=== PATIENT | male | born 1970 | race Caucasian/White ===

== ENCOUNTER 2019-09-20 14:16 | Inpatient (IN) | payer OTHER ==
[2019-09-20 17:34] VITALS: BMI 25.9
--- NOTE | 2019-09-20 20:15 | HP ---
CIWA Score Nausea/Vomitin-Mild Nausea/No Vomiting Muscle Tremors: 4-Moderate,w/Arms Extend Anxiety: 3 Agitation: 3 Paroxysmal Sweats: 3 Orientation: 0-Oriented Tacttile Disturbances: 0-None Auditory Disturbances: 0-None Visual Disturbances: 0-None Headache: 0-None Present CIWA-Ar Total Score: 14 - Admission Criteria OASAS Guidelines: Admission for Medically Managed Detox: Requires at least one of the followin. CIWA greater than 12 2. Seizures within the past 24 hours 3. Delirium tremens within the past 24 hours 4. Hallucinations within the past 24 hours 5. Acute intervention needed for co occurring medical disorder 6. Acute intervention needed for co occurring psychiatric disorder 7. Severe withdrawal that cannot be handled at a lower level of care (continued vomiting, continued diarrhea, abnormal vital signs) requiring intravenous medication and/or fluids 8. Admission ROS [facility] Chief Complaint: Alcohol withdrawal symptoms Allergies/Adverse Reactions: Allergies Allergy/AdvReac Type Severity Reaction Status Date / Time No Known Allergies Allergy Verified 09/20/19 17:25 History of Present Illness: 49 years old male with a long history of alcohol dependence (since age 10) is seeking admission to detox. Patient reports that his last detox was in 2010 at [facility]. He reports that started drinking a lot in 2017 and has had intermittent blackout, last about a year ago. He has medical history of of chronic low back pain, HIV+, and psych. history of depression. He reports suicide attempt at age 16 and denies suicidal ideation at this time. He is on Methadone 80mg maintenance therapy with [facility]. Dose is yet to be confirmed by the nurse. Confidential Drug Utilization Report Search Terms: blake kraft, 1970 Search Date: 09/20/2019 08:10:06 PM The Drug Utilization Report below displays all of the controlled substance prescriptions, if any, that your patient has filled in the last twelve months. The information displayed on this report is compiled from pharmacy submissions to the Department, and accurately reflects the information as submitted by the pharmacies. Patient Name: Blake Kraft Date: 1970 Address: [facility] SRINI [place]SELEY [address] [place] [address] Sex: Male Rx Written Rx Dispensed Drug Quantity Days Supply Prescriber Name 09/08/2019 09/08/2019 oxycodone hcl 30 mg tablet 180 30 Partha Oliverissa 08/11/2019 08/11/2019 oxycodone hcl 30 mg tablet 180 30 Ventrudo , Roque Valdivia 07/14/2019 07/14/2019 oxycodone hcl 30 mg tablet 180 30 Ventrudo , Mitch 06/16/2019 06/18/2019 oxycodone hcl 30 mg tablet 180 30 Ventrudo , Mitch 05/19/2019 05/19/2019 oxycodone hcl 30 mg tablet 150 30 Ventrudo , Mitch 04/21/2019 04/21/2019 oxycodone hcl 30 mg tablet 150 30 Ventrudo , Mitch 03/24/2019 03/24/2019 oxycodone hcl 30 mg tablet 150 30 Ventrudo , Roque Valdivia 03/24/2019 03/24/2019 oxycodone hcl er 40 mg tablet 60 30 Ventrudo, Mitch 02/24/2019 02/24/2019 oxycodone hcl 30 mg tablet 150 30 Oliver , Carol 02/24/2019 02/24/2019 oxycodone hcl er 40 mg tablet 60 30 Oliver, Carol 02/03/2019 02/05/2019 oxymorphone hcl er 20 mg tab 60 30 Jesús Abimbola Bui PA 01/27/2019 01/27/2019 oxycodone hcl 30 mg tablet 150 30 Jaylon Espinosaureen A PA 12/30/2018 12/30/2018 oxycodone hcl 30 mg tablet 150 30 Jaylon Espinosaesau Bui PA 12/02/2018 12/23/2018 oxycontin er 40 mg tablet 60 30 EspinosaAbimbola PA 11/15/2018 12/03/2018 oxycontin er 40 mg tablet 60 30 Jaylon Espinosaesau Bui PA 12/02/2018 12/02/2018 oxycodone hcl 30 mg tablet 150 30 Jesús Abimbola Bui PA 11/04/2018 11/04/2018 oxycodone hcl 30 mg tablet 150 30 Jesús Abimbola Bui PA 11/04/2018 11/04/2018 oxycodone hcl er 40 mg tablet 60 30 Jesús Abimbola DHALIWAL 10/07/2018 10/07/2018 oxycodone hcl 30 mg tablet 150 30 Ventrudo , Roque Valdivia 10/07/2018 10/07/2018 oxycodone hcl er 40 mg tablet 60 30 KaelaoGuerline Exam Limitations: No Limitations - Ebola screening Have you traveled outside of the country in the last 21 days: No (NN) Have you had contact with anyone from an Ebola affected area: No Do you have a fever: No - Review of Systems Constitutional: Chills, Malaise, Night Sweats, Changes in sleep EENT: reports: Blurred Vision, Sinus Pressure Respiratory: reports: No Symptoms reported Cardiac: reports: No Symptoms Reported GI: reports: Poor Appetite, Poor Fluid Intake, Abdominal cramping : reports: No Symptoms Reported Musculoskeletal: reports: Back Pain, Joint Pain, Muscle Pain Integumentary: reports: Dryness, Flushing Neuro: reports: Tremors Endocrine: reports: No Symptoms Reported Hematology: reports: No Symptoms Reported Psychiatric: reports: Mood/Affect Appropiate, Orientated x3, Depressed Other Systems: Reviewed and Negative Patient History - Patient Medical History Hx Anemia: No Hx Asthma: No Hx Chronic Obstructive Pulmonary Disease (COPD): No Hx Cancer: No Hx Cardiac Disorders: No Hx Congestive Heart Failure: No Hx Hypertension: No Hx Hypercholesterolemia: No Hx Pacemaker: No HX Cerebrovascular Accident: No Hx Seizures: No Hx Dementia: No Hx Diabetes: No Hx Gastrointestinal Disorders: No Hx Liver Disease: Yes (Hep. C) Hx Genitourinary Disorders: No Hx Sexually Transmitted Disorders: Yes (HIV+) Hx Renal Disease (ESRD): No Hx Thyroid Disease: No Hx Human Immunodeficiency Virus (HIV): Yes (Diagnosed 1985) Hx Hepatitis C: Yes Hx Depression: Yes Hx Suicide Attempt: Yes (Reports suicide attempt at age 16. denies suicidal ideation at this time) Hx Bipolar Disorder: No Hx Schizophrenia: No - Patient Surgical History Past Surgical History: No - PPD History Previous Implant?: Yes Documented Results: Negative w/o proof Implanted On Prior [facility] Admission?: No PPD to be Administered?: Yes - Reproductive History Patient is a Female of Child Bearing Age (11 -55 yrs old): No (male) - Smoking Cessation Smoking history: Current every day smoker Have you smoked in the past 12 months: Yes Aproximately how many cigarettes per day: 30 Hx Chewing Tobacco Use: No Initiated information on smoking cessation: Yes 'Breaking Loose' booklet given: 09/20/19 - Substance & Tx. History Hx Alcohol Use: Yes Hx Substance Use: Yes Substance Use Type: Alcohol, Cocaine, Heroin, Marijuana, Opiates, Prescribed Hx Substance Use Treatment: Yes ([facility]) - Substances abused Alcohol Substance route: Oral Frequency: Daily Amount used: 4 pints of vodka & 2 beers Age of first use: 11 Date of last use: 09/20/19 Admission Physical Exam [facility] - Vital Signs Vital Signs: Vital Signs - 24 hr 09/20/19 17:31 Temperature 100.1 F H Pulse Rate 79 Respiratory 20 Rate Blood Pressure 120/74 - Physical General Appearance: Yes: Moderate Distress, Tremorous, Irritable HEENTM: Yes: Within Normal Limits Respiratory: Yes: Lungs Clear, Normal Breath Sounds, No Respiratory Distress Neck: Yes: Supple Breast: Yes: Breast Exam Deferred Cardiology: Yes: Regular Rhythm, Regular Rate Abdominal: Yes: Normal Bowel Sounds, Soft Genitourinary: Yes: Within Normal Limits Back: Yes: Normal Inspection Musculoskeletal: Yes: Back pain, Muscle Pain Extremities: Yes: Tremors Neurological: Yes: Alert, Normal Mood/Affect Integumentary: Yes: Dry Lymphatic: Yes: Within Normal Limits - Diagnostic (1) HIV (human immunodeficiency virus infection) Current Visit: Yes Status: Chronic Qualifiers: HIV symptom status: unspecified Qualified Code(s): B20 - Human immunodeficiency virus [HIV] disease (2) Hep C w/o coma, chronic Current Visit: Yes Status: Resolved (3) Low back pain Current Visit: Yes Status: Chronic Qualifiers: Sciatica laterality: sciatica laterality unspecified (4) Depression Current Visit: Yes Status: Chronic Qualifiers: Depression Type: unspecified Qualified Code(s): F32.9 - Major depressive disorder, single episode, unspecified (5) Nicotine dependence Current Visit: Yes Status: Acute Qualifiers: Nicotine product type: cigarettes Substance use status: in withdrawal Qualified Code(s): F17.213 - Nicotine dependence, cigarettes, with withdrawal (6) Cannabis dependence Current Visit: Yes Status: Chronic (7) Cocaine dependence Current Visit: Yes Status: Chronic (8) Opioid dependence on agonist therapy Current Visit: Yes Status: Chronic Cleared for Admission [facility] - Detox or Rehab [facility] Level of Care: Medically Managed Detox Regimen/Protocol: Librium Breathalyzer - Breathalyzer Breathalyzer: 0 Urine Drug Screen - Test Device Lot number: [id number] Expiration date: 04/06/21 - Control Is test valid?: Yes - Results Drug screen NEGATIVE: No Urine drug screen results: THC-Marijuana, WENDIE-Cocaine, FEN-Fentanyl, MOP-Opiates , MTD-Methadone Inpatient Rehab Admission - Rehab Decision to Admit Inpatient rehab admission?: No
[2019-09-20] MEDS ORDERED: METHOCARBAMOL 500 MG TABLET PO PRN (20:36)
[2019-09-20] MEDS ORDERED: P-EPHED 60MG/TRIPROLIDI 2.5MG TABLET PO PRN (20:36)
[2019-09-20] MEDS ORDERED: MAGNESIUM CITRATE 300 ML BOTTLE PO PRN (20:36)
[2019-09-20] MEDS ORDERED: IBUPROFEN 400 MG TABLET (FP) PO PRN (20:36)
[2019-09-20] MEDS ORDERED: chlordiazePOXIDE HCL 25 MG CAPSULE PO PRN (20:36)
[2019-09-20] MEDS ORDERED: MAG HYDROX/AL HYDROX/SIMETH 30 ML UNIT-DOSE CUP PO PRN (20:36)
[2019-09-20] MEDS ORDERED: MENTHOL/PHENOL 1 EACH UD MM PRN (20:36)
[2019-09-20] MEDS ORDERED: MAGNESIUM HYDROX 2400MG/30ML ORAL SUSPENSION 30 ML CUP PO PRN (20:36)
[2019-09-20] MEDS ORDERED: NICOTINE POLACRILEX 2 MG GUM BUC PRN (20:36)
[2019-09-20] MEDS ORDERED: BISMUTH SUBSALICYLATE 524 MG/30 ML UD PO PRN (20:36)
[2019-09-20] MEDS ORDERED: ACETAMINOPHEN 325 MG TABLET (FP) PO PRN ×2 (20:36)
[2019-09-20] MEDS ORDERED: guaiFENesin 200 MG/10 ML 10 ML UNIT-DOSE CUPS PO PRN (20:36)
[2019-09-20] MEDS: chlordiazePOXIDE HCL 25 MG CAPSULE PO SCH (22:46)
[2019-09-20] MEDS: THIAMINE HCL 100 MG TABLET (FP) PO SCH (22:48)
[2019-09-21] MEDS: chlordiazePOXIDE HCL 25 MG CAPSULE PO SCH ×4 (06:37→22:20)
[2019-09-21] MEDS: METHADONE HCL 40 MG DISPERSABLE TABLET PO SCH (09:40)
[2019-09-21] MEDS: NICOTINE 21 MG/24 HOURS TOPICAL PATCH TD SCH (09:42)
[2019-09-21] MEDS: PRENATAL VITAMINS W/ FOLIC ACID TABLET (FP) PO SCH (09:42)
[2019-09-21 09:44] LABS: HEMATOCRIT 42.3 % (35.4-49); HEMOGLOBIN 14.1 GM/dL (11.7-16.9); MCH 29.1 pg (25.7-33.7); MCHC 33.4 g/dl (32.0-35.9); MEAN CELL VOLUME 87.2 fl (80-96); MEAN PLT VOLUME 8.2 fl (7.5-11.1); PLATELET COUNT 228 K/MM3 (134-434); RBC 4.86 M/mm3 (4.00-5.60); RDW 15.7 % (11.9-15.9); WHITE BLOOD COUNT 7.9 K/mm3 (4.0-10.0)
[2019-09-21 09:50] LABS: ALBUMIN 3.3 g/dl (3.4-5.0); BILIRUBIN,TOTAL 0.2 mg/dL (0.2-1); BLOOD UREA NITROGEN 16.6 mg/dL (7-18); CALCIUM 8.3 mg/dL (8.5-10.1); CREATININE 0.8 mg/dL (0.55-1.3); POTASSIUM 3.6 mmol/L (3.5-5.1)
--- NOTE | 2019-09-21 10:07 | EKG ---
Test Reason : Blood Pressure : / mmHG Vent. Rate : 078 BPM Atrial Rate : 078 BPM P-R Int : 124 ms QRS Dur : 112 ms QT Int : 376 ms P-R-T Axes : 034 076 053 degrees QTc Int : 428 ms NORMAL SINUS RHYTHM INCOMPLETE RIGHT BUNDLE BRANCH BLOCK BORDERLINE ECG NO PREVIOUS ECGS AVAILABLE Confirmed by POOL PEREZ MD ([id number]) on 09/21/2019 10:07:06 AM Referred By: Confirmed By:POOL PEREZ MD
--- NOTE | 2019-09-21 11:17 | CONSULT ---
[facility] Psychiatric Consult - Data Date of interview: 09/21/19 Admission source: [facility] Identifying data: Revisit to [facility] (last admitted here in 2010) and redamission to [address] [place] [address] for this 49 y/o [place] male self-referred for detoxification treatment. REBECCA issues : heroin, cocaine, cannabis, alcohol, nicotine. Patient is single, father of two, domiciled, unemployed and supported on [employer] funds. Substance Abuse History: Discussed with the patient. Details in current [facility] report as follows : Smoking history: Current every day smoker. Have you smoked in the past 12 months: Yes. Aproximately how many cigarettes per day: 30. Hx Chewing Tobacco Use: No. Initiated information on smoking cessation: Yes. ' Breaking Loose' booklet given: 09/20/19. - Substance & Tx. History. Hx Alcohol Use: Yes. Hx Substance Use: Yes. Substance Use Type: Alcohol, Cocaine , Heroin, Marijuana, Opiates, Prescribed. Hx Substance Use Treatment: Yes ([facility] ). - Substances abused. Alcohol. Substance route: Oral. Frequency: Daily. Amount used: 4 pints of vodka & 2 beers. Age of first use: 11. Date of last use: 09/20/19 Medical History: Medical profile is remarkable for HIV infection since 1985 (on ART medications), hepatitis C (treated) and chronic lumbar pain. Psychiatric History: No reported history of psychiatric hospitalizations ( psychiatric care was delivered during incarceration). Patient denies having a mental illness and he argues that psychiatrists were treating him, in jail, for insomnia. However, he reports that, at some point, he has been medicated with haloperidol, thorazine and sinequan. Has been off these medications for years. Mr Kraft indicates current methadone maintenance (80 mg/day) at a [facility] program in the [place] ([address] [facility]). Suicide history is remarkable for a distant attempt via self-mutilation (self-inflicted laceration of left forearm in 1985 when informed of his HIV seropositive status). Physical/Sexual Abuse/Trauma History: Patient denies history of abuse. Additional Comment: Urine drug screen results: THC-Marijuana, WENDIE-Cocaine, FEN- Fentanyl, MOP-Opiates, MTD-Methadone. Noted. Mental Status Exam - Mental Status Exam Alert and Oriented to: Time, Place, Person Cognitive Function: Good Patient Appearance: Unkempt, Disheveled Mood: Nervous, Withdrawn, Hopeful, Euthymic Affect: Appropriate, Normal Range Patient Behavior: Fatigued, Appropriate, Cooperative Speech Pattern: Clear, Appropriate Voice Loudness: Normal Thought Process: Intact, Goal Oriented Thought Disorder: Not Present Hallucinations: Denies Suicidal Ideation: Denies Homicidal Ideation: Denies Insight/Judgement: Poor Sleep: Fair Appetite: Good Muscle strength/Tone: Normal Gait/Station: Normal Psychiatric Findings - Problem List ([place] 1, 2,3) (1) Alcohol use disorder Current Visit: Yes Status: Chronic (2) Opioid dependence on agonist therapy Current Visit: Yes Status: Chronic (3) Cannabis dependence Current Visit: Yes Status: Chronic (4) Cocaine dependence Current Visit: Yes Status: Chronic (5) Nicotine dependence Current Visit: Yes Status: Chronic Qualifiers: Nicotine product type: cigarettes Substance use status: in withdrawal Qualified Code(s): F17.213 - Nicotine dependence, cigarettes, with withdrawal (6) Substance induced mood disorder Current Visit: Yes Status: Chronic (7) Insomnia Current Visit: Yes Status: Chronic - Initial Treatment Plan Initial Treatment Plan: Psychiatric interview conducted with medical students in atttendance (with patient's verbal authorization). Psychoeducation. Sleep hygiene. Support provided. AA/NA meetings. Observation.
--- NOTE | 2019-09-21 11:45 | PN ---
[facility] CIWA - CIWA Score Nausea/Vomitin-Mild Nausea/No Vomiting Muscle Tremors: 2 Anxiety: 1-Mildly Anxious Agitation: 1-Slight > Activity Paroxysmal Sweats: 2 Orientation: 0-Oriented Tacttile Disturbances: 2-Mild Itch/Numbness/Burn Auditory Disturbances: 0-None Visual Disturbances: 0-None Headache: 0-None Present CIWA-Ar Total Score: 9 [facility] Progress Note (SOAP) Subjective: interrupted sleep, sweats, low back pains Objective: 09/21/19 11:44 Vital Signs Temperature 99.8 F H 09/21/19 09:16 Pulse Rate 79 09/21/19 09:16 Respiratory Rate 16 09/21/19 09:16 Blood Pressure 116/75 09/21/19 09:16 O2 Sat by Pulse Oximetry (%) Laboratory Tests 09/21/19 09/21/19 09/21/19 08:10 08:10 08:10 WBC 7.9 RBC 4.86 Hgb 14.1 Hct 42.3 MCV 87.2 MCH 29.1 MCHC 33.4 RDW 15.7 Plt Count 228 MPV 8.2 Sodium 137 Potassium 3.6 Chloride 105 Carbon Dioxide 29 Anion Gap 3 L BUN 16.6 Creatinine 0.8 Est GFR (CKD-EPI)AfAm 119.88 Est GFR (CKD-EPI)NonAf 103.43 Random Glucose 106 Calcium 8.3 L Total Bilirubin 0.2 AST 28 ALT 25 Alkaline Phosphatase 119 H Total Protein 7.0 Albumin 3.3 L RPR Titer Nonreactive pt aox3 in nad ambulating Assessment: 09/21/19 11:44 withdrawal sx's otp Plan: cont. detox increase fluids motrin prn
[2019-09-21] MEDS: THIAMINE HCL 100 MG TABLET (FP) PO SCH (22:20)
[2019-09-21] MEDS: MELATONIN 5 MG TABLETS PO PRN (22:20)
[2019-09-22] MEDS: METHADONE HCL 40 MG DISPERSABLE TABLET PO SCH (05:29)
[2019-09-22] MEDS: chlordiazePOXIDE HCL 25 MG CAPSULE PO SCH ×4 (05:29→22:13)
[2019-09-22] MEDS: PRENATAL VITAMINS W/ FOLIC ACID TABLET (FP) PO SCH (10:15)
[2019-09-22] MEDS: NICOTINE 21 MG/24 HOURS TOPICAL PATCH TD SCH (10:16)
--- NOTE | 2019-09-22 13:14 | PN ---
S CIWA - CIWA Score Nausea/Vomitin-Mild Nausea/No Vomiting Muscle Tremors: 3 Anxiety: 2 Agitation: 1-Slight > Activity Paroxysmal Sweats: 1-Minimal Palms Moist Orientation: 0-Oriented Tacttile Disturbances: 0-None Auditory Disturbances: 0-None Visual Disturbances: 1-Very Mild Sensitivity Headache: 1-Very Mild CIWA-Ar Total Score: 10 [facility] Progress Note (SOAP) Subjective: 49 years old male admitted on 09/20/19 for alcohol withdrawal sx management treating with librium detox regimen feeling ok today ambulating on hallway limited social activities with peers encourage positive support networking Objective: 09/22/19 13:17 Vital Signs Temperature 99.0 F 09/22/19 06:16 Pulse Rate 80 09/22/19 06:16 Respiratory Rate 18 09/22/19 06:16 Blood Pressure 113/67 09/22/19 06:16 O2 Sat by Pulse Oximetry (%) Laboratory Last Values WBC 7.9 K/mm3 (4.0-10.0) 09/21/19 08:10 RBC 4.86 M/mm3 (4.00-5.60) 09/21/19 08:10 Hgb 14.1 GM/dL (11.7-16.9) 09/21/19 08:10 Hct 42.3 % (35.4-49) 09/21/19 08:10 MCV 87.2 fl (80-96) 09/21/19 08:10 MCH 29.1 pg (25.7-33.7) 09/21/19 08:10 MCHC 33.4 g/dl (32.0-35.9) 09/21/19 08:10 RDW 15.7 % (11.9-15.9) 09/21/19 08:10 Plt Count 228 K/MM3 (134-434) 09/21/19 08:10 MPV 8.2 fl (7.5-11.1) 09/21/19 08:10 Sodium 137 mmol/L (136-145) 09/21/19 08:10 Potassium 3.6 mmol/L (3.5-5.1) 09/21/19 08:10 Chloride 105 mmol/L (98-107) 09/21/19 08:10 Carbon Dioxide 29 mmol/L (21-32) 09/21/19 08:10 Anion Gap 3 MMOL/L (8-16) L 09/21/19 08:10 BUN 16.6 mg/dL (7-18) 09/21/19 08:10 Creatinine 0.8 mg/dL (0.55-1.3) 09/21/19 08:10 Est GFR (CKD-EPI)AfAm 119.88 09/21/19 08:10 Est GFR (CKD-EPI)NonAf 103.43 09/21/19 08:10 Random Glucose 106 mg/dL (74-106) 09/21/19 08:10 Calcium 8.3 mg/dL (8.5-10.1) L 09/21/19 08:10 Total Bilirubin 0.2 mg/dL (0.2-1) 09/21/19 08:10 AST 28 U/L (15-37) 09/21/19 08:10 ALT 25 U/L (13-61) 09/21/19 08:10 Alkaline Phosphatase 119 U/L (45-117) H 09/21/19 08:10 Total Protein 7.0 g/dl (6.4-8.2) 09/21/19 08:10 Albumin 3.3 g/dl (3.4-5.0) L 09/21/19 08:10 RPR Titer Nonreactive (NONREACTIVE) 09/21/19 08:10 lab noted Assessment: 09/22/19 13:17 alcohol withdrawal Plan: librium regimen
[2019-09-22] MEDS: MELATONIN 5 MG TABLETS PO PRN (22:14)
[2019-09-22] MEDS: THIAMINE HCL 100 MG TABLET (FP) PO SCH (22:14)
[2019-09-23] MEDS ORDERED: chlordiazePOXIDE HCL 10 MG CAPSULE PO PRN
[2019-09-23] MEDS: chlordiazePOXIDE HCL 10 MG CAPSULE PO SCH ×4 (05:25→22:24)
[2019-09-23] MEDS: METHADONE HCL 40 MG DISPERSABLE TABLET PO SCH (05:25)
[2019-09-23] MEDS: NICOTINE 21 MG/24 HOURS TOPICAL PATCH TD SCH (10:08)
[2019-09-23] MEDS: PRENATAL VITAMINS W/ FOLIC ACID TABLET (FP) PO SCH (10:09)
--- NOTE | 2019-09-23 14:05 | PN ---
S CIWA - CIWA Score Nausea/Vomitin Muscle Tremors: 1-None Visible, but [place] Anxiety: 1-Mildly Anxious Agitation: 1-Slight > Activity Paroxysmal Sweats: 2 Orientation: 1-Uncertain about Date Tacttile Disturbances: 1-Very Mild Itch/Numbness Auditory Disturbances: 0-None Visual Disturbances: 0-None Headache: 0-None Present CIWA-Ar Total Score: 10 [facility] Progress Note (SOAP) Subjective: interrupted sleep, sweats, chills, upset stomach Objective: 09/23/19 14:03 Vital Signs Temperature 99.7 F H 09/23/19 09:43 Pulse Rate 67 09/23/19 09:43 Respiratory Rate 18 09/23/19 09:43 Blood Pressure 97/54 L 09/23/19 09:43 O2 Sat by Pulse Oximetry (%) Laboratory Tests 09/21/19 09/21/19 09/21/19 08:10 08:10 08:10 WBC 7.9 RBC 4.86 Hgb 14.1 Hct 42.3 MCV 87.2 MCH 29.1 MCHC 33.4 RDW 15.7 Plt Count 228 MPV 8.2 Sodium 137 Potassium 3.6 Chloride 105 Carbon Dioxide 29 Anion Gap 3 L BUN 16.6 Creatinine 0.8 Est GFR (CKD-EPI)AfAm 119.88 Est GFR (CKD-EPI)NonAf 103.43 Random Glucose 106 Calcium 8.3 L Total Bilirubin 0.2 AST 28 ALT 25 Alkaline Phosphatase 119 H Total Protein 7.0 Albumin 3.3 L RPR Titer Nonreactive pt aox3 in nad ambulating Assessment: 09/23/19 14:04 cont. detox increase fluids Plan: cont detox increase fluids peptobismol prn
[2019-09-23] MEDS: THIAMINE HCL 100 MG TABLET (FP) PO SCH (22:24)
[2019-09-23] MEDS: MELATONIN 5 MG TABLETS PO PRN (22:24)
[2019-09-24] MEDS ORDERED: chlordiazePOXIDE HCL 10 MG CAPSULE PO SCH (05:00)
[2019-09-24] MEDS: METHADONE HCL 40 MG DISPERSABLE TABLET PO SCH (05:58)
[2019-09-24 09:22] VITALS: BP 103/69; PULSE 76; TEMP 99.1
[2019-09-24] MEDS: PRENATAL VITAMINS W/ FOLIC ACID TABLET (FP) PO SCH (11:24)
[2019-09-24] MEDS: NICOTINE 21 MG/24 HOURS TOPICAL PATCH TD SCH (11:24)
--- NOTE | 2019-09-24 16:02 | DS ---
[facility] Detox Discharge Summary Admission Date: 09/20/19 Discharge Date: 09/24/19 (Pt left AMA) - History Present History: Alcohol Dependence Additional Comments: As per H&P: 49 years old male with a long history of alcohol dependence (since age 10) is seeking admission to detox. Patient reports that his last detox was in 2010 at [facility]. He reports that started drinking a lot in 2017 and has had intermittent blackout, last about a year ago. He has medical history of of chronic low back pain, HIV+, and psych. history of depression. He reports suicide attempt at age 16 and denies suicidal ideation at this time. He is on Methadone 80mg maintenance therapy with [facility]. Pt left AMA today. Pt did not complete the detox protocol. Pt states, "i have to go and take care of my sick son". An attempt to let pt stay and complete the detox protocol failed. Pt is encouraged to follow-up with an outpatient CD program and also to follow-up with his PMD. Pt verbalized understanding. Pt is alert and oriented x3 and in no respiratory distress. Pertinent Past History: H/o alcohol use disorder and HIV+ - Physical Exam Results Vital Signs: Vital Signs Temperature 99.1 F 09/24/19 09:22 Pulse Rate 76 09/24/19 09:22 Respiratory Rate 18 09/24/19 09:22 Blood Pressure 103/69 09/24/19 09:22 O2 Sat by Pulse Oximetry (%) Vital Signs 09/24/19 09:22 Temperature 99.1 F Pulse Rate 76 Respiratory 18 Rate Blood Pressure 103/69 Laboratory Last Values WBC 7.9 K/mm3 (4.0-10.0) 09/21/19 08:10 RBC 4.86 M/mm3 (4.00-5.60) 09/21/19 08:10 Hgb 14.1 GM/dL (11.7-16.9) 09/21/19 08:10 Hct 42.3 % (35.4-49) 09/21/19 08:10 MCV 87.2 fl (80-96) 09/21/19 08:10 MCH 29.1 pg (25.7-33.7) 09/21/19 08:10 MCHC 33.4 g/dl (32.0-35.9) 09/21/19 08:10 RDW 15.7 % (11.9-15.9) 09/21/19 08:10 Plt Count 228 K/MM3 (134-434) 09/21/19 08:10 MPV 8.2 fl (7.5-11.1) 09/21/19 08:10 Sodium 137 mmol/L (136-145) 09/21/19 08:10 Potassium 3.6 mmol/L (3.5-5.1) 09/21/19 08:10 Chloride 105 mmol/L (98-107) 09/21/19 08:10 Carbon Dioxide 29 mmol/L (21-32) 09/21/19 08:10 Anion Gap 3 MMOL/L (8-16) L 09/21/19 08:10 BUN 16.6 mg/dL (7-18) 09/21/19 08:10 Creatinine 0.8 mg/dL (0.55-1.3) 09/21/19 08:10 Est GFR (CKD-EPI)AfAm 119.88 09/21/19 08:10 Est GFR (CKD-EPI)NonAf 103.43 09/21/19 08:10 Random Glucose 106 mg/dL (74-106) 09/21/19 08:10 Calcium 8.3 mg/dL (8.5-10.1) L 09/21/19 08:10 Total Bilirubin 0.2 mg/dL (0.2-1) 09/21/19 08:10 AST 28 U/L (15-37) 09/21/19 08:10 ALT 25 U/L (13-61) 09/21/19 08:10 Alkaline Phosphatase 119 U/L (45-117) H 09/21/19 08:10 Total Protein 7.0 g/dl (6.4-8.2) 09/21/19 08:10 Albumin 3.3 g/dl (3.4-5.0) L 09/21/19 08:10 RPR Titer Nonreactive (NONREACTIVE) 09/21/19 08:10 Labs noted. Pertinent Admission Physical Exam Findings: withdrawal symptoms. - Treatment Hospital Course: Detox Protocol Followed, Detoxed Safely, Responded well - Medication Discharge Medications: Ambulatory Orders Elviteg/Cob/Emtri/Tenof Alafen [Genvoya Tablet] 1 each PO DAILY 09/20/19 Gabapentin 800 mg PO PRN PRN 09/20/19 Multivitamins [Tab-A-Vit -] 1 tab PO DAILY 09/20/19 Oxycodone HCl [Roxicodone] 30 mg PO PRN PRN 09/20/19 - Diagnosis (1) Alcohol use disorder Status: Chronic (2) Cannabis dependence Status: Chronic (3) Cocaine dependence Status: Chronic (4) HIV (human immunodeficiency virus infection) Status: Chronic Qualifiers: HIV symptom status: unspecified Qualified Code(s): B20 - Human immunodeficiency virus [HIV] disease (5) Low back pain Status: Chronic Qualifiers: Sciatica laterality: sciatica laterality unspecified (6) Nicotine dependence Status: Chronic Qualifiers: Nicotine product type: cigarettes Substance use status: in withdrawal Qualified Code(s): F17.213 - Nicotine dependence, cigarettes, with withdrawal (7) Opioid dependence on agonist therapy Status: Chronic - AMA Did Patient Leave Against Medical Advice: Yes
[2019-09-25] MEDS ORDERED: chlordiazePOXIDE HCL 10 MG CAPSULE PO ONE (05:00)
== END 2019-09-24 12:21 | disposition home or self-care (01) | DRG 773 ==
LOC: YASAS 14:16 → Y3N 20:33
PROVIDERS: ADMIT Allergy & Immunology; ATTEND Allergy & Immunology
PROC: HZ2ZZZZ Detoxification Services for Substance Abuse Treatment (ICD-10-PCS; principal; 2019-09-17)
DX: F10.230 Alcohol dependence with withdrawal, uncomplicated (principal); F11.20 Opioid dependence, uncomplicated; F14.20 Cocaine dependence, uncomplicated; F12.20 Cannabis dependence, uncomplicated; F17.213 Nicotine dependence, cigarettes, with withdrawal; F19.24 Other psychoactive substance dependence with psychoactive substance-induced mood disorder; F32.9 Major depressive disorder, single episode, unspecified; Z21 Asymptomatic human immunodeficiency virus [HIV] infection status; M54.40 Lumbago with sciatica, unspecified side; G89.29 Other chronic pain; G47.00 Insomnia, unspecified
CPT/HCPCS: 36415; 80053; 85027; 86593; 93005; 93010

== ENCOUNTER 2020-10-15 09:51 | Inpatient (IN) | payer OTHER ==
[2020-10-15 10:58] VITALS: BMI 23.1
[2020-10-15] MEDS ORDERED: NICOTINE POLACRILEX 2 MG GUM BUC PRN (11:15)
[2020-10-15] MEDS ORDERED: METHOCARBAMOL 500 MG TABLET PO PRN (11:15)
[2020-10-15] MEDS ORDERED: MAG HYDROX/AL HYDROX/SIMETH 30 ML UNIT-DOSE CUP PO PRN (11:15)
[2020-10-15] MEDS ORDERED: IBUPROFEN 400 MG TABLET (FP) PO PRN (11:15)
[2020-10-15] MEDS ORDERED: MAGNESIUM HYDROX 2400MG/30ML ORAL SUSPENSION 30 ML CUP PO PRN (11:15)
[2020-10-15] MEDS ORDERED: MAGNESIUM CITRATE 300 ML BOTTLE PO PRN (11:15)
[2020-10-15] MEDS ORDERED: chlordiazePOXIDE HCL 25 MG CAPSULE PO PRN (11:15)
[2020-10-15] MEDS ORDERED: BISMUTH SUBSALICYLATE 524 MG/30 ML UD PO PRN (11:15)
[2020-10-15] MEDS ORDERED: ONDANSETRON *ODT* 4 MG TABLET SL PRN (11:15)
[2020-10-15] MEDS ORDERED: MENTHOL/PHENOL 1 EACH UD MM PRN (11:15)
[2020-10-15] MEDS ORDERED: ACETAMINOPHEN 325 MG TABLET (FP) PO PRN ×2 (11:15)
[2020-10-15] MEDS: PRENATAL VITAMINS W/ FOLIC ACID TABLET (FP) PO SCH (12:47)
[2020-10-15] MEDS: METHADONE HCL 10 MG TABLET PO SCH (12:48)
[2020-10-15] MEDS: NICOTINE 21 MG/24 HOURS TOPICAL PATCH TD SCH (12:48)
[2020-10-15] MEDS ORDERED: ELVITEG/COB/EMTRI/TENOF (GENVOYA) TABLET (NF) PO SCH (13:17)
[2020-10-15] MEDS: hydrOXYzine PAMOATE 25 MG CAPSULE (FP) PO SCH ×3 (14:05→22:24)
[2020-10-15] MEDS: ELVITEG/COB/EMTRI/TENOF (GENVOYA) TABLET (NF) PO SCH (15:34)
[2020-10-15 16:00] LABS: ALBUMIN 3.7 g/dl (3.4-5.0); BLOOD UREA NITROGEN 14.4 mg/dL (7-18); CALCIUM 8.9 mg/dL (8.5-10.1)
[2020-10-15 16:04] LABS: CREATININE 0.7 mg/dL (0.55-1.3)
[2020-10-15 16:05] LABS: BILIRUBIN,TOTAL 0.8 mg/dL (0.2-1)
[2020-10-15 16:21] LABS: HEMATOCRIT 40.8 % (35.4-49); HEMOGLOBIN 13.4 GM/dL (11.7-16.9); MCH 28.2 pg (25.7-33.7); MCHC 32.8 g/dl (32.0-35.9); MEAN CELL VOLUME 85.8 fl (80-96); PLATELET COUNT 227 K/MM3 (134-434); RBC 4.75 M/mm3 (4.00-5.60); RDW 15.5 % (11.9-15.9); WHITE BLOOD COUNT 6.2 K/mm3 (4.0-10.0)
[2020-10-15] MEDS: chlordiazePOXIDE HCL 25 MG CAPSULE PO SCH ×2 (17:39→22:24)
[2020-10-15] MEDS: THIAMINE HCL 100 MG TABLET (FP) PO SCH (22:24)
[2020-10-15] MEDS: MELATONIN 5 MG TABLETS PO SCH (22:24)
[2020-10-16] MEDS: chlordiazePOXIDE HCL 25 MG CAPSULE PO SCH ×4 (06:16→22:26)
[2020-10-16] MEDS ORDERED: METHADONE HCL 40 MG DISPERSABLE TABLET PO SCH (06:16)
[2020-10-16] MEDS: hydrOXYzine PAMOATE 25 MG CAPSULE (FP) PO SCH ×5 (06:17→22:26)
[2020-10-16] MEDS: METHADONE HCL 40 MG DISPERSABLE TABLET PO SCH (06:26)
[2020-10-16] MEDS: METHADONE HCL 10 MG TABLET PO SCH (07:29)
[2020-10-16] MEDS: ELVITEG/COB/EMTRI/TENOF (GENVOYA) TABLET (NF) PO SCH (07:36)
[2020-10-16] MEDS: NICOTINE 21 MG/24 HOURS TOPICAL PATCH TD SCH (10:19)
[2020-10-16] MEDS: PRENATAL VITAMINS W/ FOLIC ACID TABLET (FP) PO SCH (10:20)
[2020-10-16] MEDS ORDERED: FLU VACCINE (FLULAVAL) PF 60 MCG/0.5 ML SYRINGE 2020-2021 IM ONE (12:00)
[2020-10-16] MEDS ORDERED: MASKS NR ONE (16:38)
[2020-10-16] MEDS: MELATONIN 5 MG TABLETS PO SCH (22:25)
[2020-10-16] MEDS: THIAMINE HCL 100 MG TABLET (FP) PO SCH (22:26)
[2020-10-17] MEDS: METHADONE HCL 40 MG DISPERSABLE TABLET PO SCH (06:22)
[2020-10-17] MEDS: chlordiazePOXIDE HCL 25 MG CAPSULE PO SCH ×4 (06:22→23:33)
[2020-10-17] MEDS: hydrOXYzine PAMOATE 25 MG CAPSULE (FP) PO SCH ×5 (06:23→23:01)
[2020-10-17] MEDS: NICOTINE 21 MG/24 HOURS TOPICAL PATCH TD SCH (10:31)
[2020-10-17] MEDS: ELVITEG/COB/EMTRI/TENOF (GENVOYA) TABLET (NF) PO SCH (10:31)
[2020-10-17] MEDS: PRENATAL VITAMINS W/ FOLIC ACID TABLET (FP) PO SCH (10:31)
[2020-10-17] MEDS: LIDOCAINE 5% TOPICAL PATCH TP SCH (11:37)
[2020-10-17] MEDS ORDERED: LIDOCAINE PATCH REMOVAL MC SCH (22:00)
[2020-10-17] MEDS: MELATONIN 5 MG TABLETS PO SCH (23:00)
[2020-10-17] MEDS: LIDOCAINE PATCH REMOVAL MC SCH (23:00)
[2020-10-17] MEDS: THIAMINE HCL 100 MG TABLET (FP) PO SCH (23:01)
[2020-10-18] MEDS ORDERED: chlordiazePOXIDE HCL 10 MG CAPSULE PO PRN
[2020-10-18] MEDS: chlordiazePOXIDE HCL 10 MG CAPSULE PO SCH ×4 (07:00→23:39)
[2020-10-18] MEDS: METHADONE HCL 40 MG DISPERSABLE TABLET PO SCH (07:00)
[2020-10-18] MEDS: hydrOXYzine PAMOATE 25 MG CAPSULE (FP) PO SCH ×5 (07:00→22:41)
[2020-10-18] MEDS: ELVITEG/COB/EMTRI/TENOF (GENVOYA) TABLET (NF) PO SCH (09:57)
[2020-10-18] MEDS: LIDOCAINE 5% TOPICAL PATCH TP SCH (09:59)
[2020-10-18] MEDS: PRENATAL VITAMINS W/ FOLIC ACID TABLET (FP) PO SCH (09:59)
[2020-10-18] MEDS: NICOTINE 21 MG/24 HOURS TOPICAL PATCH TD SCH (09:59)
[2020-10-18] MEDS: THIAMINE HCL 100 MG TABLET (FP) PO SCH (22:40)
[2020-10-18] MEDS: MELATONIN 5 MG TABLETS PO SCH (22:41)
[2020-10-18] MEDS: LIDOCAINE PATCH REMOVAL MC SCH (22:42)
[2020-10-19] MEDS ORDERED: chlordiazePOXIDE HCL 10 MG CAPSULE PO SCH (05:00)
[2020-10-19] MEDS: METHADONE HCL 40 MG DISPERSABLE TABLET PO SCH (05:36)
[2020-10-19] MEDS: hydrOXYzine PAMOATE 25 MG CAPSULE (FP) PO SCH ×2 (05:36→10:00)
[2020-10-19] MEDS: ELVITEG/COB/EMTRI/TENOF (GENVOYA) TABLET (NF) PO SCH (09:09)
[2020-10-19 09:43] VITALS: BP 112/56; PULSE 58; TEMP 98.3
[2020-10-19] MEDS: LIDOCAINE 5% TOPICAL PATCH TP SCH (09:59)
[2020-10-19] MEDS: PRENATAL VITAMINS W/ FOLIC ACID TABLET (FP) PO SCH (10:00)
[2020-10-19] MEDS: NICOTINE 21 MG/24 HOURS TOPICAL PATCH TD SCH (10:00)
[2020-10-20] MEDS ORDERED: chlordiazePOXIDE HCL 10 MG CAPSULE PO ONE (05:00)
== END 2020-10-19 12:50 | disposition home or self-care (01) | DRG 773 ==
LOC: YASAS 09:51 → Y6N 12:11
PROVIDERS: ADMIT Allergy & Immunology; ATTEND Allergy & Immunology
PROC: HZ2ZZZZ Detoxification Services for Substance Abuse Treatment (ICD-10-PCS; principal; 2020-10-15)
DX: F10.230 Alcohol dependence with withdrawal, uncomplicated (principal); F11.20 Opioid dependence, uncomplicated; F14.20 Cocaine dependence, uncomplicated; F13.10 Sedative, hypnotic or anxiolytic abuse, uncomplicated; F12.20 Cannabis dependence, uncomplicated; F17.213 Nicotine dependence, cigarettes, with withdrawal; Z21 Asymptomatic human immunodeficiency virus [HIV] infection status; B18.2 Chronic viral hepatitis C; M54.5 Low back pain; Z86.19 Personal history of other infectious and parasitic diseases; Z87.442 Personal history of urinary calculi; Z91.5 Personal history of self-harm
CPT/HCPCS: 36415; 80053; 85027; 86593; 86780; C9803; G0008; Q2036; U0003

== ENCOUNTER 2021-05-03 11:04 | Inpatient (IN) | payer OTHER ==
[2021-05-03] MEDS ORDERED: BISMUTH SUBSALICYLATE 524 MG/30 ML PO PRN (12:35)
[2021-05-03] MEDS ORDERED: ACETAMINOPHEN 325 MG TABLET (FP) PO PRN (12:35)
[2021-05-03] MEDS ORDERED: MENTHOL/PHENOL 1 EACH UD MM PRN (12:35)
[2021-05-03] MEDS ORDERED: clonazePAM 0.5 MG ODT TABLETS SL PRN (12:35)
[2021-05-03] MEDS ORDERED: MAGNESIUM HYDROX 2400MG/30ML ORAL SUSPENSION 30 ML CUP PO PRN (12:35)
[2021-05-03] MEDS ORDERED: MAGNESIUM CITRATE 300 ML BOTTLE PO PRN (12:35)
[2021-05-03] MEDS ORDERED: ONDANSETRON *ODT* 4 MG TABLET SL PRN (12:35)
[2021-05-03] MEDS ORDERED: MAG HYDROX/AL HYDROX/SIMETH 30 ML UNIT-DOSE CUP PO PRN (12:35)
[2021-05-03] MEDS ORDERED: cloNIDine HCL 0.1 MG TABLET PO PRN (12:35)
[2021-05-03] MEDS ORDERED: NICOTINE POLACRILEX 2 MG GUM BUC PRN (12:35)
[2021-05-03] MEDS ORDERED: methaDONE HCL 10 MG TABLET (FOR DETOX USE ONLY) PO ONE (13:15)
[2021-05-03 14:43] VITALS: BMI 21.2
[2021-05-03] MEDS: hydrOXYzine PAMOATE 25 MG CAPSULE (FP) PO SCH ×3 (14:43→22:23)
[2021-05-03] MEDS: LORazepam 1 MG TABLET PO PRN (14:45)
[2021-05-03 14:49] LABS: HEMATOCRIT 38.6 % (35.4-49); HEMOGLOBIN 12.8 GM/dL (11.7-16.9); MCH 27.7 pg (25.7-33.7); MCHC 33.1 g/dl (32.0-35.9); MEAN CELL VOLUME 83.7 fl (80-96); MEAN PLT VOLUME 7.8 fl (7.5-11.1); PLATELET COUNT 361 10^3/uL (134-434); RBC 4.61 M/mm3 (4.00-5.60); RDW 16.2 % (11.9-15.9); WHITE BLOOD COUNT 9.7 K/mm3 (4.0-10.0)
[2021-05-03 14:54] LABS: ALBUMIN 3.7 g/dl (3.4-5.0); CALCIUM 9.4 mg/dL (8.5-10.1)
[2021-05-03 14:58] LABS: CREATININE 0.9 mg/dL (0.55-1.3)
[2021-05-03 14:59] LABS: BILIRUBIN,TOTAL 0.4 mg/dL (0.2-1); TOT PROT 9.9 g/dl (6.4-8.2)
[2021-05-03] MEDS: NICOTINE 10 MG CARTRIDGE (INHALER) IH PRN (15:41)
[2021-05-03] MEDS: METHOCARBAMOL 500 MG TABLET PO PRN ×2 (15:51→22:23)
[2021-05-03] MEDS: IBUPROFEN 400 MG TABLET (FP) PO PRN (15:51)
[2021-05-03] MEDS: LORazepam 2 MG TABLET PO SCH ×2 (18:28→22:23)
[2021-05-03] MEDS: MELATONIN 5 MG TABLETS PO SCH (22:23)
[2021-05-03] MEDS: THIAMINE HCL 100 MG TABLET (FP) PO SCH (22:23)
[2021-05-04] MEDS: LORazepam 2 MG TABLET PO SCH ×4 (05:45→22:40)
[2021-05-04] MEDS: hydrOXYzine PAMOATE 25 MG CAPSULE (FP) PO SCH ×5 (05:48→22:39)
[2021-05-04] MEDS: NICOTINE 10 MG CARTRIDGE (INHALER) IH PRN ×2 (08:41→11:48)
[2021-05-04] MEDS ORDERED: methaDONE HCL 10 MG TABLET (FOR DETOX USE ONLY) ONE (09:53)
[2021-05-04] MEDS: METHOCARBAMOL 500 MG TABLET PO PRN (10:11)
[2021-05-04] MEDS: PRENATAL VITAMINS W/ FOLIC ACID TABLET (FP) PO SCH (10:12)
[2021-05-04] MEDS: NICOTINE 21 MG/24 HOURS TOPICAL PATCH TD SCH (10:13)
[2021-05-04] MEDS: ACETAMINOPHEN 325 MG TABLET (FP) PO PRN ×2 (10:15→18:48)
[2021-05-04] MEDS: LORazepam 1 MG TABLET PO PRN ×2 (14:45→18:47)
[2021-05-04] MEDS: IBUPROFEN 400 MG TABLET (FP) PO PRN (14:46)
[2021-05-04] MEDS: MELATONIN 5 MG TABLETS PO SCH (22:39)
[2021-05-04] MEDS: THIAMINE HCL 100 MG TABLET (FP) PO SCH (22:39)
[2021-05-05] MEDS: hydrOXYzine PAMOATE 25 MG CAPSULE (FP) PO SCH ×5 (06:32→22:03)
[2021-05-05] MEDS: LORazepam 1 MG TABLET PO SCH ×4 (06:32→22:03)
[2021-05-05] MEDS: IBUPROFEN 400 MG TABLET (FP) PO PRN (09:43)
[2021-05-05] MEDS: METHOCARBAMOL 500 MG TABLET PO PRN (09:43)
[2021-05-05] MEDS: NICOTINE 21 MG/24 HOURS TOPICAL PATCH TD SCH (09:44)
[2021-05-05] MEDS: PRENATAL VITAMINS W/ FOLIC ACID TABLET (FP) PO SCH (09:44)
[2021-05-05] MEDS ORDERED: methaDONE HCL 10 MG TABLET (FOR DETOX USE ONLY) PO ONE (10:00)
[2021-05-05] MEDS: THIAMINE HCL 100 MG TABLET (FP) PO SCH (22:03)
[2021-05-05] MEDS: MELATONIN 5 MG TABLETS PO SCH (22:03)
[2021-05-06] MEDS ORDERED: LORazepam 0.5 MG TABLET PO PRN
[2021-05-06] MEDS: LORazepam 0.5 MG TABLET PO SCH ×4 (05:55→22:30)
[2021-05-06] MEDS: hydrOXYzine PAMOATE 25 MG CAPSULE (FP) PO SCH ×5 (05:55→22:31)
[2021-05-06] MEDS ORDERED: methaDONE HCL 10 MG TABLET (FOR DETOX USE ONLY) ONE (09:02)
[2021-05-06] MEDS: PRENATAL VITAMINS W/ FOLIC ACID TABLET (FP) PO SCH (10:29)
[2021-05-06] MEDS: NICOTINE 21 MG/24 HOURS TOPICAL PATCH TD SCH (10:30)
[2021-05-06] MEDS: THIAMINE HCL 100 MG TABLET (FP) PO SCH (22:30)
[2021-05-06] MEDS: MELATONIN 5 MG TABLETS PO SCH (22:31)
[2021-05-07] MEDS ORDERED: LORazepam 0.5 MG TABLET PO ONE (05:00)
[2021-05-07] MEDS: hydrOXYzine PAMOATE 25 MG CAPSULE (FP) PO SCH ×5 (06:25→22:23)
[2021-05-07] MEDS ORDERED: methaDONE HCL 10 MG TABLET (FOR DETOX USE ONLY) PO ONE (10:00)
[2021-05-07] MEDS: NICOTINE 21 MG/24 HOURS TOPICAL PATCH TD SCH (10:15)
[2021-05-07] MEDS: PRENATAL VITAMINS W/ FOLIC ACID TABLET (FP) PO SCH (10:15)
[2021-05-07] MEDS: METHOCARBAMOL 500 MG TABLET PO PRN ×2 (10:18→17:38)
[2021-05-07] MEDS: THIAMINE HCL 100 MG TABLET (FP) PO SCH (22:23)
[2021-05-07] MEDS: MELATONIN 5 MG TABLETS PO SCH (22:23)
[2021-05-08] MEDS: hydrOXYzine PAMOATE 25 MG CAPSULE (FP) PO SCH (06:16)
[2021-05-08 09:03] VITALS: BP 122/81; PULSE 74; TEMP 98.2
== END 2021-05-08 09:32 | disposition home or self-care (01) | DRG 773 ==
LOC: YASAS 11:04 → Y6N 14:09
PROVIDERS: ADMIT Allergy & Immunology; ATTEND Allergy & Immunology
PROC: HZ2ZZZZ Detoxification Services for Substance Abuse Treatment (ICD-10-PCS; principal; 2021-05-03)
DX: F11.23 Opioid dependence with withdrawal (principal); F10.230 Alcohol dependence with withdrawal, uncomplicated; F17.210 Nicotine dependence, cigarettes, uncomplicated; Z21 Asymptomatic human immunodeficiency virus [HIV] infection status; M54.5 Low back pain; Z86.19 Personal history of other infectious and parasitic diseases; Z99.89 Dependence on other enabling machines and devices; S32.9XXD Fracture of unspecified parts of lumbosacral spine and pelvis, subsequent encounter for fracture with routine healing; W19.XXXD Unspecified fall, subsequent encounter
CPT/HCPCS: 36415; 73523-TC-FY; 80053; 84520; 85027; 86593; 86780; C9803; Q0162; U0003; U0005

== ENCOUNTER 2021-10-12 20:37 | Observation (INO) | payer OTHER ==
[2021-10-12] MEDS ORDERED: ACETAMINOPHEN 500 MG TABLET (FP) PO ONE (22:01)
[2021-10-12 23:52] LABS: HEMATOCRIT 37.1 % (35.4-49); HEMOGLOBIN 12.1 GM/dL (11.7-16.9); MCH 26.4 pg (25.7-33.7); MCHC 32.6 g/dl (32.0-35.9); MEAN CELL VOLUME 80.9 fl (80-96); MEAN PLT VOLUME 7.3 fl (7.5-11.1); PLATELET COUNT 236 10^3/uL (134-434); RBC 4.59 M/mm3 (4.00-5.60); RDW 16.5 % (11.9-15.9); WHITE BLOOD COUNT 5.1 K/mm3 (4.0-10.0)
[2021-10-12] MEDS ORDERED: ACETAMINOPHEN 325 MG TABLET (FP) ONE (23:57)
[2021-10-13 00:15] LABS: ALBUMIN 3.2 g/dl (3.4-5.0); BLOOD UREA NITROGEN 12.7 mg/dL (7-18); CALCIUM 8.8 mg/dL (8.5-10.1)
[2021-10-13 00:19] LABS: CREATININE 0.8 mg/dL (0.55-1.3)
[2021-10-13] MEDS ORDERED: ENOXAPARIN NA (PORCINE) 40 MG/0.4 ML DISP.SYRIN SQ ONE (00:19)
[2021-10-13 00:21] LABS: BILIRUBIN,TOTAL 0.2 mg/dL (0.2-1); TOT PROT 8.1 g/dl (6.4-8.2)
[2021-10-13] MEDS ORDERED: ENOXAPARIN NA (PORCINE) 60 MG/0.6 ML DISP.SYRIN SQ ONE (00:28)
[2021-10-13 00:42] LABS: ERYTHROCYTE SEDIMENTATION RATE 34 mm/hr (0-20)
[2021-10-13] MEDS ORDERED: SENNOSIDES 8.6MG TABLET (FP) PO PRN (03:06)
[2021-10-13] MEDS ORDERED: DOCUSATE SODIUM 100 MG CAPSULE (FP) PO PRN (03:06)
[2021-10-13 06:56] VITALS: BMI 22.4
[2021-10-13] MEDS: APIXABAN 5 MG TABLET PO SCH ×2 (09:13→21:12)
[2021-10-13] MEDS: NICOTINE 21 MG/24 HOURS TOPICAL PATCH TD SCH (09:13)
[2021-10-13] MEDS: diazePAM 5 MG TABLET PO SCH ×3 (09:58→21:13)
[2021-10-13] MEDS ORDERED: APIXABAN 5 MG TABLET PO SCH (10:00)
[2021-10-13] MEDS ORDERED: FLU VACC QS2021-22(6MOS UP)/PF 60 MCG/0.5 ML SYRINGE IM ONE (10:00)
[2021-10-13 12:11] LABS: ANISOCYTOSIS 2+; MACROCYTOSIS 0; OVALOCYTE 1+; PLATELET ESTIMATE NORMAL; TEAR DROP CELLS 1+
[2021-10-13 13:05] LABS: METHADONE, UR NEGATIVE (NEGATIVE); PHENCYCLIDINE,URINE NEGATIVE (NEGATIVE); URINE BARBITURATES NEGATIVE (NEGATIVE); URINE BENZODIAZEPINES NEGATIVE (NEGATIVE)
[2021-10-13 13:07] LABS: COCAINE, UR POSITIVE (NEGATIVE); OPIATES, URI NEGATIVE (NEGATIVE); URINE AMPHETAMINES NEGATIVE (NEGATIVE)
[2021-10-13 16:28] LABS: BASO % 0.4 % (0-2.0); EOS % 1.1 % (0-4.5); HEMOGLOBIN 11.9 GM/dL (11.7-16.9); LYMPH % 36.9 % (8-40); MCH 26.2 pg (25.7-33.7); MCHC 32.2 g/dl (32.0-35.9); MEAN CELL VOLUME 81.4 fl (80-96); MONO % 10.6 % (3.8-10.2); PLATELET COUNT 256 10^3/uL (134-434); RBC 4.55 M/mm3 (4.00-5.60); RDW 16.5 % (11.9-15.9); WHITE BLOOD COUNT 5.4 K/mm3 (4.0-10.0)
[2021-10-13 16:49] LABS: INR 1.52 (0.83-1.09); PROTHROMBIN TIME (PATIENT) 17.5 SEC (9.7-13.0)
[2021-10-13 16:51] LABS: ACTIVATED PTT 35.5 SECONDS (25.2-36.5)
[2021-10-13 16:54] LABS: CALCIUM 8.3 mg/dL (8.5-10.1); MAGNESIUM 2.3 mg/dL (1.8-2.4)
[2021-10-13 16:58] LABS: BILIRUBIN,TOTAL 0.6 mg/dL (0.2-1); CREATININE 0.7 mg/dL (0.55-1.3); PHOSPHOROUS 3.7 mg/dL (2.5-4.9)
[2021-10-13 16:59] LABS: TOT PROT 7.5 g/dl (6.4-8.2)
[2021-10-13] MEDS ORDERED: ENOXAPARIN NA (PORCINE) 80 MG/0.8 ML DISP.SYRIN SQ SCH (20:00)
[2021-10-13 20:43] LABS: HIV INTERPRETATION PRESUMPTIVE POSITIVE (NEGATIVE)
[2021-10-14] MEDS: diazePAM 5 MG TABLET PO SCH ×2 (07:03→15:40)
[2021-10-14] MEDS: APIXABAN 5 MG TABLET PO SCH (09:41)
[2021-10-14] MEDS: NICOTINE 21 MG/24 HOURS TOPICAL PATCH TD SCH (09:42)
[2021-10-14] MEDS ORDERED: methaDONE HCL 10 MG TABLET PO ONE (12:15)
[2021-10-14 15:14] VITALS: BP 124/65; PULSE 84; TEMP 98.2
[2021-10-14] MEDS ORDERED: HEPARIN NA (PORCINE) 5,000 UNITS/ML 1ML VIAL SQ SCH (22:00)
[2021-10-15] MEDS ORDERED: diazePAM 5 MG TABLET PO SCH (08:00)
[2021-10-16] MEDS ORDERED: diazePAM 5 MG TABLET PO ONE (09:34)
[2021-10-20] MEDS ORDERED: APIXABAN 5 MG TABLET PO SCH (10:00)
== END 2021-10-14 17:03 | disposition left against medical advice (07) ==
LOC: JER 20:37 → INTOOBSV 10-13 00:25 → JERBED 10-13 00:25 → J5S 10-13 05:58
PROVIDERS: ADMIT Hospitalist
PROC: 3E023GC Introduction of Other Therapeutic Substance into Muscle, Percutaneous Approach (ICD-10-PCS; principal; 2021-10-13)
DX: I82.811 Embolism and thrombosis of superficial veins of right lower extremity (principal); B20 Human immunodeficiency virus [HIV] disease; F19.10 Other psychoactive substance abuse, uncomplicated; B19.20 Unspecified viral hepatitis C without hepatic coma; G89.29 Other chronic pain; M54.59 Other low back pain; F32.9 Major depressive disorder, single episode, unspecified; A53.9 Syphilis, unspecified; Z86.19 Personal history of other infectious and parasitic diseases; Z29.9 Encounter for prophylactic measures, unspecified; F17.210 Nicotine dependence, cigarettes, uncomplicated
CPT/HCPCS: 36415; 80053; 80307; 83735; 84100; 85025; 85610; 85651; 85730; 86140; 86705; 86707; 87040; 87340; 87350; 87389; 87517; 87522; 93005; 93010; 93970-TC; 96372; 97116-GP; 97161-GP; 99285-25; C9803; G0378; U0003; U0005

== ENCOUNTER 2021-10-31 12:54 | Inpatient (IN) | payer OTHER ==
[2021-10-31] MEDS ORDERED: MAGNESIUM CITRATE 300 ML BOTTLE PO PRN (14:07)
[2021-10-31] MEDS ORDERED: NICOTINE 10 MG CARTRIDGE (INHALER) IH PRN (14:07)
[2021-10-31] MEDS ORDERED: MAGNESIUM HYDROX 2400MG/30ML ORAL SUSPENSION 30 ML CUP PO PRN (14:07)
[2021-10-31] MEDS ORDERED: ACETAMINOPHEN 325 MG TABLET (FP) PO PRN ×2 (14:07)
[2021-10-31] MEDS ORDERED: BISMUTH SUBSALICYLATE 524 MG/30 ML PO PRN (14:07)
[2021-10-31] MEDS ORDERED: chlordiazePOXIDE HCL 25 MG CAPSULE PO PRN (14:07)
[2021-10-31] MEDS ORDERED: MENTHOL/PHENOL 1 EACH UD MM PRN (14:07)
[2021-10-31] MEDS ORDERED: LOPERAMIDE HCL 2 MG CAPSULE PO PRN (14:07)
[2021-10-31] MEDS ORDERED: ONDANSETRON *ODT* 4 MG TABLET SL PRN (14:07)
[2021-10-31] MEDS ORDERED: MAG HYDROX/AL HYDROX/SIMETH 30 ML UNIT-DOSE CUP PO PRN (14:07)
[2021-10-31] MEDS ORDERED: methaDONE HCL 10 MG TABLET (FOR DETOX USE ONLY) PO ONE (14:07)
[2021-10-31] MEDS ORDERED: cloNIDine HCL 0.1 MG TABLET PO PRN (14:07)
[2021-10-31] MEDS ORDERED: NICOTINE 14 MG/24 HOURS TOPICAL PATCH TD SCH (14:15)
[2021-10-31 14:43] VITALS: BMI 22.8
[2021-10-31] MEDS: PRENATAL VITAMINS W/ FOLIC ACID TABLET (FP) PO SCH (17:15)
[2021-10-31] MEDS: chlordiazePOXIDE HCL 25 MG CAPSULE PO SCH ×2 (17:15→23:13)
[2021-10-31] MEDS: NICOTINE 21 MG/24 HOURS TOPICAL PATCH TD SCH (18:20)
[2021-10-31] MEDS: hydrOXYzine PAMOATE 25 MG CAPSULE (FP) PO SCH ×2 (18:21→23:13)
[2021-10-31] MEDS: MELATONIN 5 MG TABLETS PO SCH (23:13)
[2021-10-31] MEDS: THIAMINE HCL 100 MG TABLET (FP) PO SCH (23:13)
[2021-11-01] MEDS: chlordiazePOXIDE HCL 25 MG CAPSULE PO SCH ×4 (05:37→22:58)
[2021-11-01] MEDS: hydrOXYzine PAMOATE 25 MG CAPSULE (FP) PO SCH ×5 (05:37→23:00)
[2021-11-01] MEDS ORDERED: methaDONE HCL 10 MG TABLET (FOR DETOX USE ONLY) ONE (11:27)
[2021-11-01] MEDS: PRENATAL VITAMINS W/ FOLIC ACID TABLET (FP) PO SCH (11:29)
[2021-11-01] MEDS: NICOTINE 21 MG/24 HOURS TOPICAL PATCH TD SCH (11:29)
[2021-11-01 11:54] LABS: HEMATOCRIT 38.8 % (35.4-49); HEMOGLOBIN 12.5 GM/dL (11.7-16.9); MCH 26.4 pg (25.7-33.7); MCHC 32.2 g/dl (32.0-35.9); MEAN CELL VOLUME 81.8 fl (80-96); MEAN PLT VOLUME 7.9 fl (7.5-11.1); PLATELET COUNT 319 10^3/uL (134-434); RBC 4.74 M/mm3 (4.00-5.60); WHITE BLOOD COUNT 7.4 K/mm3 (4.0-10.0)
[2021-11-01 12:05] LABS: ALBUMIN 3.1 g/dl (3.4-5.0); BLOOD UREA NITROGEN 12.6 mg/dL (7-18); CALCIUM 8.2 mg/dL (8.5-10.1)
[2021-11-01 12:08] LABS: BILIRUBIN,TOTAL 0.3 mg/dL (0.2-1); CREATININE 0.7 mg/dL (0.55-1.3); TOT PROT 7.5 g/dl (6.4-8.2)
[2021-11-01] MEDS: METHYL SALICYLATE/MENTHOL OINT 30 GM TUBE TP SCH (16:27)
[2021-11-01] MEDS: MELATONIN 5 MG TABLETS PO SCH (23:00)
[2021-11-01] MEDS: THIAMINE HCL 100 MG TABLET (FP) PO SCH (23:00)
[2021-11-02] MEDS: hydrOXYzine PAMOATE 25 MG CAPSULE (FP) PO SCH ×5 (06:24→22:21)
[2021-11-02] MEDS: chlordiazePOXIDE HCL 25 MG CAPSULE PO SCH ×4 (06:24→22:21)
[2021-11-02] MEDS ORDERED: methaDONE HCL 10 MG TABLET (FOR DETOX USE ONLY) PO ONE (10:00)
[2021-11-02] MEDS: METHOCARBAMOL 500 MG TABLET PO PRN (10:46)
[2021-11-02] MEDS: METHYL SALICYLATE/MENTHOL OINT 30 GM TUBE TP SCH (10:46)
[2021-11-02] MEDS: PRENATAL VITAMINS W/ FOLIC ACID TABLET (FP) PO SCH (10:47)
[2021-11-02] MEDS: NICOTINE 21 MG/24 HOURS TOPICAL PATCH TD SCH (10:47)
[2021-11-02] MEDS: MELATONIN 5 MG TABLETS PO SCH (22:21)
[2021-11-02] MEDS: THIAMINE HCL 100 MG TABLET (FP) PO SCH (22:21)
[2021-11-02] MEDS: IBUPROFEN 400 MG TABLET (FP) PO PRN (22:22)
[2021-11-03] MEDS ORDERED: chlordiazePOXIDE HCL 10 MG CAPSULE PO PRN
[2021-11-03] MEDS: hydrOXYzine PAMOATE 25 MG CAPSULE (FP) PO SCH ×5 (05:49→22:42)
[2021-11-03] MEDS: chlordiazePOXIDE HCL 10 MG CAPSULE PO SCH ×4 (05:49→22:42)
[2021-11-03 06:38] LABS: SARS-CoV-2 NAA Not Detected (Not Detected)
[2021-11-03] MEDS ORDERED: methaDONE HCL 10 MG TABLET (FOR DETOX USE ONLY) ONE (08:42)
[2021-11-03] MEDS: PRENATAL VITAMINS W/ FOLIC ACID TABLET (FP) PO SCH (10:05)
[2021-11-03] MEDS: NICOTINE 21 MG/24 HOURS TOPICAL PATCH TD SCH (10:06)
[2021-11-03] MEDS: METHYL SALICYLATE/MENTHOL OINT 30 GM TUBE TP SCH (10:07)
[2021-11-03] MEDS: METHOCARBAMOL 500 MG TABLET PO PRN ×2 (10:07→20:23)
[2021-11-03] MEDS: IBUPROFEN 400 MG TABLET (FP) PO PRN (20:23)
[2021-11-03] MEDS: THIAMINE HCL 100 MG TABLET (FP) PO SCH (22:42)
[2021-11-03] MEDS: MELATONIN 5 MG TABLETS PO SCH (22:43)
[2021-11-04] MEDS: hydrOXYzine PAMOATE 25 MG CAPSULE (FP) PO SCH ×4 (07:36→13:30)
[2021-11-04] MEDS: chlordiazePOXIDE HCL 10 MG CAPSULE PO SCH ×2 (07:36→07:45)
[2021-11-04] MEDS ORDERED: methaDONE HCL 10 MG TABLET (FOR DETOX USE ONLY) PO ONE (10:00)
[2021-11-04] MEDS: METHOCARBAMOL 500 MG TABLET PO PRN (10:20)
[2021-11-04] MEDS: METHYL SALICYLATE/MENTHOL OINT 30 GM TUBE TP SCH (10:20)
[2021-11-04] MEDS: PRENATAL VITAMINS W/ FOLIC ACID TABLET (FP) PO SCH (10:20)
[2021-11-04] MEDS: NICOTINE 21 MG/24 HOURS TOPICAL PATCH TD SCH (10:21)
[2021-11-04] MEDS ORDERED: chlordiazePOXIDE 5 MG CAPSULE PO ONE ×2 (10:49→21:00)
[2021-11-04 13:12] VITALS: TEMP 97.5
[2021-11-04] MEDS ORDERED: cloNIDine HCL 0.1 MG TABLET PO PRN (13:35)
[2021-11-04] MEDS ORDERED: hydrOXYzine PAMOATE 50 MG CAPSULE (FP) PO ONE (13:57)
[2021-11-04] MEDS ORDERED: ONDANSETRON *ODT* 4 MG TABLET SL ONE (13:58)
[2021-11-04] MEDS ORDERED: hydrOXYzine PAMOATE 25 MG CAPSULE (FP) PO ONE (13:58)
[2021-11-04] MEDS ORDERED: hydrOXYzine PAMOATE 25 MG CAPSULE (FP) PO SCH (17:00)
[2021-11-04 17:10] VITALS: BP 103/63; PULSE 81
[2021-11-05] MEDS ORDERED: chlordiazePOXIDE HCL 10 MG CAPSULE PO ONE (05:00)
== END 2021-11-04 16:45 | disposition home or self-care (01) | DRG 773 ==
LOC: YASAS 12:54 → Y6N 15:45
PROVIDERS: ADMIT Allergy & Immunology; ATTEND Allergy & Immunology
PROC: HZ2ZZZZ Detoxification Services for Substance Abuse Treatment (ICD-10-PCS; principal; 2021-10-31)
DX: F11.23 Opioid dependence with withdrawal (principal); F10.230 Alcohol dependence with withdrawal, uncomplicated; F14.20 Cocaine dependence, uncomplicated; F12.20 Cannabis dependence, uncomplicated; F17.210 Nicotine dependence, cigarettes, uncomplicated; F32.A Depression, unspecified; Z21 Asymptomatic human immunodeficiency virus [HIV] infection status; A53.0 Latent syphilis, unspecified as early or late; B18.2 Chronic viral hepatitis C; Z86.19 Personal history of other infectious and parasitic diseases
CPT/HCPCS: 36415; 80053; 85027; 86593; 86780; C9803; J0735; Q0162; U0003; U0005

== ENCOUNTER 2022-01-23 12:45 | Inpatient (IN) | payer OTHER ==
[2022-01-23] MEDS ORDERED: MAGNESIUM HYDROX 2400MG/30ML ORAL SUSPENSION 30 ML CUP PO PRN (13:43)
[2022-01-23] MEDS ORDERED: METHOCARBAMOL 500 MG TABLET PO PRN (13:43)
[2022-01-23] MEDS ORDERED: ONDANSETRON *ODT* 4 MG TABLET SL PRN (13:43)
[2022-01-23] MEDS ORDERED: chlordiazePOXIDE HCL 25 MG CAPSULE PO PRN (13:43)
[2022-01-23] MEDS ORDERED: BISMUTH SUBSALICYLATE 524 MG/30 ML PO PRN (13:43)
[2022-01-23] MEDS ORDERED: MAGNESIUM CITRATE 300 ML BOTTLE PO PRN (13:43)
[2022-01-23] MEDS ORDERED: DICYCLOMINE HCL 10 MG CAPSULE PO PRN (13:43)
[2022-01-23] MEDS ORDERED: ACETAMINOPHEN 325 MG TABLET (FP) PO PRN ×2 (13:43)
[2022-01-23] MEDS ORDERED: NICOTINE 10 MG CARTRIDGE (INHALER) IH PRN (13:43)
[2022-01-23] MEDS ORDERED: IBUPROFEN 400 MG TABLET (FP) PO PRN (13:43)
[2022-01-23] MEDS ORDERED: diazePAM 5 MG TABLET PO PRN (13:43)
[2022-01-23] MEDS ORDERED: LOPERAMIDE HCL 2 MG CAPSULE PO PRN (13:43)
[2022-01-23] MEDS ORDERED: BENZOCAINE/MENTHOL (CHLORASEPTIC ) LOZENGE MM PRN (13:43)
[2022-01-23] MEDS ORDERED: MAG HYDROX/AL HYDROX/SIMETH 30 ML UNIT-DOSE CUP PO PRN (13:43)
[2022-01-23] MEDS ORDERED: BUPRENORPHINE HCL 150 MCG, BUPRENORPHINE HCL 75 MCG BC PRN (13:43)
[2022-01-23] MEDS ORDERED: BUPRENORPHINE HCL 150 MCG, BUPRENORPHINE HCL 75 MCG BC ONE (14:15)
[2022-01-23] MEDS ORDERED: cloNIDine HCL 0.1 MG TABLET PO ONE (14:15)
[2022-01-23] MEDS ORDERED: BUPRENORPHINE HCL 75 MCG FILM BC ONE (14:36)
[2022-01-23] MEDS ORDERED: BUPRENORPHINE HCL 150 MCG FILM BC ONE (14:36)
[2022-01-23] MEDS ORDERED: hydrOXYzine PAMOATE 25 MG CAPSULE (FP) PO ONE (14:36)
[2022-01-23] MEDS ORDERED: cloNIDine HCL 0.1 MG TABLET ONE (14:36)
[2022-01-23] MEDS ORDERED: NICOTINE 21 MG/24 HOURS TOPICAL PATCH ONE (14:37)
[2022-01-23] MEDS: PRENATAL VITAMINS W/ FOLIC ACID TABLET (FP) PO SCH (14:47)
[2022-01-23] MEDS: hydrOXYzine PAMOATE 25 MG CAPSULE (FP) PO SCH ×3 (14:47→23:20)
[2022-01-23] MEDS: NICOTINE 21 MG/24 HOURS TOPICAL PATCH TD SCH (14:47)
[2022-01-23 14:54] VITALS: BMI 21.5
[2022-01-23 17:19] LABS: HEMATOCRIT 37.2 % (35.4-49); HEMOGLOBIN 11.8 GM/dL (11.7-16.9); MCH 25.3 pg (25.7-33.7); MCHC 31.8 g/dl (32.0-35.9); MEAN CELL VOLUME 79.5 fl (80-96); MEAN PLT VOLUME 8.2 fl (7.5-11.1); PLATELET COUNT 223 10^3/uL (134-434); RBC 4.68 M/mm3 (4.00-5.60); RDW 16.9 % (11.9-15.9); WHITE BLOOD COUNT 6.8 K/mm3 (4.0-10.0)
[2022-01-23 17:27] LABS: ALBUMIN 3.1 g/dl (3.4-5.0); BLOOD UREA NITROGEN 18.1 mg/dL (7-18)
[2022-01-23 17:28] LABS: CALCIUM 8.5 mg/dL (8.5-10.1)
[2022-01-23 17:30] LABS: CREATININE 0.8 mg/dL (0.55-1.3)
[2022-01-23 17:31] LABS: TOT PROT 7.7 g/dl (6.4-8.2)
[2022-01-23 17:32] LABS: BILIRUBIN,TOTAL 0.3 mg/dL (0.2-1)
[2022-01-23] MEDS ORDERED: cloNIDine HCL 0.1 MG TABLET PO PRN (17:43)
[2022-01-23] MEDS: chlordiazePOXIDE HCL 25 MG CAPSULE PO SCH ×2 (18:55→23:20)
[2022-01-23] MEDS: MELATONIN 5 MG TABLETS PO SCH (23:20)
[2022-01-23] MEDS: THIAMINE HCL 100 MG TABLET (FP) PO SCH (23:20)
[2022-01-23] MEDS: SULFAMETHOXAZOLE/TRIMETHOPRIM 800MG/160MG D.S. TABLET PO SCH (23:27)
[2022-01-24] MEDS ORDERED: BUPRENORPHINE HCL 150 MCG, BUPRENORPHINE HCL 75 MCG BC PRN
[2022-01-24] MEDS ORDERED: BUPRENORPHINE HCL 150 MCG FILM BC ONE (06:29)
[2022-01-24] MEDS: chlordiazePOXIDE HCL 25 MG CAPSULE PO SCH (06:30)
[2022-01-24] MEDS ORDERED: BUPRENORPHINE HCL 75 MCG FILM BC ONE (06:30)
[2022-01-24] MEDS: BUPRENORPHINE HCL 150 MCG, BUPRENORPHINE HCL 75 MCG BC SCH ×2 (06:32→18:27)
[2022-01-24] MEDS: hydrOXYzine PAMOATE 25 MG CAPSULE (FP) PO SCH ×5 (07:06→22:43)
[2022-01-24] MEDS: PRENATAL VITAMINS W/ FOLIC ACID TABLET (FP) PO SCH (10:40)
[2022-01-24] MEDS: SULFAMETHOXAZOLE/TRIMETHOPRIM 800MG/160MG D.S. TABLET PO SCH ×2 (10:40→22:43)
[2022-01-24] MEDS: NICOTINE 21 MG/24 HOURS TOPICAL PATCH TD SCH (10:41)
[2022-01-24] MEDS: LORazepam 2 MG TABLET PO SCH ×3 (11:55→22:43)
[2022-01-24] MEDS: THIAMINE HCL 100 MG TABLET (FP) PO SCH (22:42)
[2022-01-24] MEDS: MELATONIN 5 MG TABLETS PO SCH (22:43)
[2022-01-25] MEDS ORDERED: chlordiazePOXIDE HCL 25 MG CAPSULE PO SCH (05:00)
[2022-01-25] MEDS: LORazepam 2 MG TABLET PO SCH ×4 (06:12→22:27)
[2022-01-25] MEDS: hydrOXYzine PAMOATE 25 MG CAPSULE (FP) PO SCH ×5 (06:12→22:27)
[2022-01-25] MEDS: BUPRENORPHINE HCL 450 MCG FILM BC SCH ×2 (06:43→18:33)
[2022-01-25 10:14] LABS: SARS-CoV-2 NAA Not Detected (Not Detected)
[2022-01-25] MEDS: PRENATAL VITAMINS W/ FOLIC ACID TABLET (FP) PO SCH (10:48)
[2022-01-25] MEDS: SULFAMETHOXAZOLE/TRIMETHOPRIM 800MG/160MG D.S. TABLET PO SCH ×2 (10:48→22:27)
[2022-01-25] MEDS: NICOTINE 21 MG/24 HOURS TOPICAL PATCH TD SCH (10:48)
[2022-01-25] MEDS: LORazepam 1 MG TABLET PO PRN (15:11)
[2022-01-25] MEDS: THIAMINE HCL 100 MG TABLET (FP) PO SCH (22:27)
[2022-01-25] MEDS: MELATONIN 5 MG TABLETS PO SCH (22:28)
[2022-01-26] MEDS ORDERED: chlordiazePOXIDE HCL 10 MG CAPSULE PO PRN
[2022-01-26] MEDS: LORazepam 1 MG TABLET PO PRN (03:08)
[2022-01-26] MEDS ORDERED: chlordiazePOXIDE HCL 10 MG CAPSULE PO SCH (05:00)
[2022-01-26] MEDS ORDERED: BUPRENORPHINE/NALOXONE 4 MG/1 MG FILM PACKET SL SCH (06:00)
[2022-01-26 06:19] VITALS: BP 110/59; PULSE 74; TEMP 97.5
[2022-01-26] MEDS: hydrOXYzine PAMOATE 25 MG CAPSULE (FP) PO SCH ×2 (06:29→09:58)
[2022-01-26] MEDS: LORazepam 1 MG TABLET PO SCH ×2 (06:57→10:02)
[2022-01-26] MEDS: NICOTINE 21 MG/24 HOURS TOPICAL PATCH TD SCH (09:58)
[2022-01-26] MEDS: PRENATAL VITAMINS W/ FOLIC ACID TABLET (FP) PO SCH (09:58)
[2022-01-26] MEDS: SULFAMETHOXAZOLE/TRIMETHOPRIM 800MG/160MG D.S. TABLET PO SCH (09:58)
[2022-01-27] MEDS ORDERED: LORazepam 0.5 MG TABLET PO PRN
[2022-01-27] MEDS ORDERED: chlordiazePOXIDE HCL 10 MG CAPSULE PO SCH (05:00)
[2022-01-27] MEDS ORDERED: LORazepam 0.5 MG TABLET PO SCH (05:00)
[2022-01-27] MEDS ORDERED: BUPRENORPHINE/NALOXONE 8 MG/2 MG FILM PACKET SL ONE (06:00)
[2022-01-28] MEDS ORDERED: chlordiazePOXIDE HCL 10 MG CAPSULE PO ONE (05:00)
[2022-01-28] MEDS ORDERED: LORazepam 0.5 MG TABLET PO ONE (05:00)
== END 2022-01-26 09:53 | disposition left against medical advice (07) | DRG 770 ==
LOC: YASAS 12:45 → Y3N 16:06
PROVIDERS: ADMIT Allergy & Immunology; ATTEND Surgery
PROC: HZ2ZZZZ Detoxification Services for Substance Abuse Treatment (ICD-10-PCS; principal; 2022-01-23)
DX: F10.230 Alcohol dependence with withdrawal, uncomplicated (principal); F11.20 Opioid dependence, uncomplicated; F14.20 Cocaine dependence, uncomplicated; F12.20 Cannabis dependence, uncomplicated; F17.210 Nicotine dependence, cigarettes, uncomplicated; Z21 Asymptomatic human immunodeficiency virus [HIV] infection status; M54.50 Low back pain, unspecified; G89.29 Other chronic pain; R76.8 Other specified abnormal immunological findings in serum; R94.5 Abnormal results of liver function studies; Z86.69 Personal history of other diseases of the nervous system and sense organs; Z86.19 Personal history of other infectious and parasitic diseases; Z28.310 Unvaccinated for COVID-19
CPT/HCPCS: 36415; 80053; 85027; 86593; 86780; C9803-CS; J0735; U0003; U0005

== ENCOUNTER 2022-03-19 16:56 | Inpatient (IN) | payer OTHER ==
[2022-03-19 19:00] VITALS: BMI 23.1
[2022-03-19] MEDS ORDERED: MAGNESIUM HYDROX 2400MG/30ML ORAL SUSPENSION 30 ML CUP PO PRN (19:12)
[2022-03-19] MEDS ORDERED: BISMUTH SUBSALICYLATE 524 MG/30 ML PO PRN (19:12)
[2022-03-19] MEDS ORDERED: NICOTINE 10 MG CARTRIDGE (INHALER) IH PRN (19:12)
[2022-03-19] MEDS ORDERED: methaDONE HCL 10 MG TABLET (FOR DETOX USE ONLY) PO ONE (19:12)
[2022-03-19] MEDS ORDERED: IBUPROFEN 400 MG TABLET (FP) PO PRN (19:12)
[2022-03-19] MEDS ORDERED: ACETAMINOPHEN 325 MG TABLET (FP) PO PRN ×2 (19:12)
[2022-03-19] MEDS ORDERED: cloNIDine HCL 0.1 MG TABLET PO PRN (19:12)
[2022-03-19] MEDS ORDERED: LOPERAMIDE HCL 2 MG CAPSULE PO PRN (19:12)
[2022-03-19] MEDS ORDERED: IBUPROFEN 600 MG TABLET (FP) PO PRN (19:12)
[2022-03-19] MEDS ORDERED: MAGNESIUM CITRATE 300 ML BOTTLE PO PRN (19:12)
[2022-03-19] MEDS ORDERED: MAG HYDROX/AL HYDROX/SIMETH 30 ML UNIT-DOSE CUP PO PRN (19:12)
[2022-03-19] MEDS ORDERED: DICYCLOMINE HCL 10 MG CAPSULE PO PRN (19:12)
[2022-03-19] MEDS ORDERED: BENZOCAINE/MENTHOL (CHLORASEPTIC ) LOZENGE MM PRN (19:12)
[2022-03-19] MEDS ORDERED: METHOCARBAMOL 500 MG TABLET PO PRN (19:12)
[2022-03-19] MEDS ORDERED: NALOXONE HCL 0.4 MG/ML VIAL IM PRN (19:12)
[2022-03-20] MEDS ORDERED: methaDONE HCL 10 MG TABLET (FOR DETOX USE ONLY) PO ONE (00:45)
[2022-03-20] MEDS: MELATONIN 5 MG TABLETS PO SCH ×2 (00:57→22:22)
[2022-03-20] MEDS: THIAMINE HCL 100 MG TABLET (FP) PO SCH ×2 (00:57→22:22)
[2022-03-20] MEDS ORDERED: methaDONE HCL 10 MG TABLET (FOR DETOX USE ONLY) ONE (08:48)
[2022-03-20] MEDS: PRENATAL VITAMINS W/ FOLIC ACID TABLET (FP) PO SCH (10:47)
[2022-03-20] MEDS: NICOTINE 7 MG/24 HOURS TOPICAL PATCH TD SCH (10:52)
[2022-03-20 11:12] LABS: HEMATOCRIT 39.6 % (35.4-49); HEMOGLOBIN 12.9 GM/dL (11.7-16.9); MCH 25.2 pg (25.7-33.7); MCHC 32.6 g/dl (32.0-35.9); MEAN CELL VOLUME 77.2 fl (80-96); MEAN PLT VOLUME 7.3 fl (7.5-11.1); PLATELET COUNT 268 10^3/uL (134-434); RBC 5.12 M/mm3 (4.00-5.60); RDW 16.4 % (11.9-15.9); WHITE BLOOD COUNT 4.7 K/mm3 (4.0-10.0)
[2022-03-20 11:26] LABS: CALCIUM 8.7 mg/dL (8.5-10.1)
[2022-03-20 11:27] LABS: ALBUMIN 3.1 g/dl (3.4-5.0); BLOOD UREA NITROGEN 14.9 mg/dL (7-18)
[2022-03-20 11:30] LABS: CREATININE 0.7 mg/dL (0.55-1.3)
[2022-03-20 11:31] LABS: BILIRUBIN,TOTAL 0.6 mg/dL (0.2-1); TOT PROT 8.3 g/dl (6.4-8.2)
[2022-03-20] MEDS: diazePAM 5 MG TABLET PO PRN (22:22)
[2022-03-21] MEDS: diazePAM 5 MG TABLET PO PRN ×3 (07:16→22:14)
[2022-03-21] MEDS ORDERED: methaDONE HCL 10 MG TABLET (FOR DETOX USE ONLY) PO ONE (10:00)
[2022-03-21] MEDS: PRENATAL VITAMINS W/ FOLIC ACID TABLET (FP) PO SCH (10:19)
[2022-03-21] MEDS: NICOTINE 7 MG/24 HOURS TOPICAL PATCH TD SCH (10:20)
[2022-03-21] MEDS: MELATONIN 5 MG TABLETS PO SCH (22:15)
[2022-03-21] MEDS: THIAMINE HCL 100 MG TABLET (FP) PO SCH (22:15)
[2022-03-22] MEDS: diazePAM 5 MG TABLET PO PRN (07:10)
[2022-03-22 09:40] VITALS: BP 126/91; PULSE 85; TEMP 96.9
[2022-03-22] MEDS ORDERED: methaDONE HCL 10 MG TABLET (FOR DETOX USE ONLY) ONE (10:03)
[2022-03-22] MEDS: NICOTINE 7 MG/24 HOURS TOPICAL PATCH TD SCH (10:18)
[2022-03-22] MEDS: PRENATAL VITAMINS W/ FOLIC ACID TABLET (FP) PO SCH (10:19)
[2022-03-23] MEDS ORDERED: methaDONE HCL 10 MG TABLET (FOR DETOX USE ONLY) PO ONE (10:00)
== END 2022-03-22 12:16 | disposition left against medical advice (07) | DRG 770 ==
LOC: YASAS 16:56 → Y3N 21:54
PROVIDERS: ADMIT Allergy & Immunology; ATTEND Surgery
PROC: HZ2ZZZZ Detoxification Services for Substance Abuse Treatment (ICD-10-PCS; principal; 2022-03-19)
DX: F11.23 Opioid dependence with withdrawal (principal); F14.20 Cocaine dependence, uncomplicated; F12.20 Cannabis dependence, uncomplicated; F17.210 Nicotine dependence, cigarettes, uncomplicated; F19.24 Other psychoactive substance dependence with psychoactive substance-induced mood disorder; Z21 Asymptomatic human immunodeficiency virus [HIV] infection status; M54.50 Low back pain, unspecified; G89.29 Other chronic pain; Z86.19 Personal history of other infectious and parasitic diseases; Z28.310 Unvaccinated for COVID-19; Z59.00 Homelessness unspecified
CPT/HCPCS: 36415; 80053; 85027; 86593; 86780; C9803-CS; J0735; U0003; U0005